=== PATIENT | female | born 1960 | race Two or more races ===

== ENCOUNTER 2017-11-30 08:46 | Outpatient (CLI) | payer OTHER ==
[~2017-11-30 08:46] MED LIST: DIOVAN HCT 160-1 TAB
== END 2017-11-30 15:23 | disposition home or self-care (01) ==
LOC: MAMO-SONO 08:46
DX: Z12.31 Encounter for screening mammogram for malignant neoplasm of breast (principal)

== ENCOUNTER → 2018-03-08 10:24 | Outpatient (CLI) | payer OTHER | END | disposition home or self-care (01) | LOC: LAB 10:24 | DX: I50.89 Other heart failure (principal) ==

== ENCOUNTER 2018-10-14 09:22 | Outpatient (CLI) | payer OTHER | END 2018-10-14 10:00 | disposition home or self-care (01) | LOC: NUCLEAR 09:22 | DX: I35.0 Nonrheumatic aortic (valve) stenosis (principal) ==

== ENCOUNTER 2018-12-08 07:39 | Outpatient (CLI) | payer OTHER | END 2018-12-08 10:22 | disposition home or self-care (01) | LOC: LAB 07:39 | DX: I71.01 Dissection of thoracic aorta (principal); Z51.81 Encounter for therapeutic drug level monitoring ==

== ENCOUNTER 2018-12-08 09:48 | Outpatient (CLI) | payer OTHER | END 2018-12-08 10:47 | disposition home or self-care (01) | LOC: TOM 09:48 | DX: I71.01 Dissection of thoracic aorta (principal) | CPT/HCPCS: 71275 ==

== ENCOUNTER 2020-12-06 12:35 | Emergency (ER) | payer OTHER ==
[~2020-12-06] VITALS: Ht 157.5 cm; Wt 72.6 kg
== END 2020-12-06 14:57 | disposition home or self-care (01) ==
LOC: ER 12:35
DX: S80.02XA Contusion of left knee, initial encounter (principal); W18.39XA Other fall on same level, initial encounter; Y93.89 Activity, other specified; Y92.69 Other specified industrial and construction area as the place of occurrence of the external cause; Y99.8 Other external cause status

== ENCOUNTER 2025-06-06 13:59 | Outpatient (CLI) | payer OTHER | END 2025-06-06 14:01 | disposition home or self-care (01) | LOC: MAMO-SONO 13:59 | PROVIDERS: ATTEND Specialist | DX: N63.0 Unspecified lump in unspecified breast (principal); Z12.31 Encounter for screening mammogram for malignant neoplasm of breast ==